=== PATIENT | female | born 1950 | race Two or more races ===

== ENCOUNTER 2024-10-21 21:05 | Inpatient (IN) | payer OTHER ==
[~2024-10-21] VITALS: Ht 157.5 cm; Wt 54.5 kg
[~2024-10-21 21:05] MED LIST: ASPI81CH59 PO; ATOR-507 PO; BRIM0.2S17 EACHEYE; BRIN1SUS EACHEYE; CEPH500C PO; CLON0.1T PO; DOCU-94 PO; LATA0.008 EACHEYE; METO25TA93 PO; OXYC325T14 PO; TIMO0.5S28 EACHEYE
--- NOTE | 2024-10-21 21:28 | ED.PDOC ---
HPI Comments 74-year-old female who comes in with chief complaint of chest pain. The patient states that she was at home and at approximately 11:00 a.m. this morning she developed some non provoked chest pain which was nonradiating. She rated it as a 7/10. She states that the chest pain was somewhat substernal and sharp in nature. It was associated with some nausea and vomiting but no diarrhea. She denies any diaphoresis and there was no trauma to the chest. She does have a history of Coronary artery disease with LAD occlusion. She was actually seen initially at [facility] in [facility] and then transferred to our facility for possible admission. There the patient had an EKG as well as aspirin nitroglycerin x2. The patient's pain went from a seven down to a to and upon arrival it was now was 0/10. She is complaining of some mild shortness for breath. She is accompanied in the emergency department's by her . The patient's seems to also have had a troponin level x1 which was within normal limits. Chief Complaint: Chest Pain Time Seen by MD: 21:20 Reviewed Notes: Nurses Notes, Toy Assembler Wood Notes, Medications, Allergies (No allergies to medications) Allergies: Coded Allergies: NO KNOWN ALLERGIES (Unverified , 10/21/24) Information Source: Patient, Emergency Med Personnel, Spouse Mode of Arrival: EMS Severity: Moderate Timing: Hours Duration: Since onset Prehospital treatment: 12 Lead EKG, ASA, Hack Saw Operator, IVF, NTG Location: Substernal Radiation: No Radiation Quality: Sharp Onset: At Rest Cardiac Risk Factors: Family History, HTN PE Risk Factors: None History of: Similar pain in past Modifying Factors: Nothing Associated Signs and Symptoms: SOB, N/V Past Medical History PAST MEDICAL HISTORY: Angina, CAD, High Lipids, HTN Surgical History: , Tonsillectomy SUPERVISOR URANIUM PROCESSING History: No Pertinent SUPERVISOR URANIUM PROCESSING History Family History Family History: Family hx of heart val Social History Smoker: Non-Smoker Alcohol: Occasionally Drugs: Denies Drug Use Lives In: Home Constitutional: denies: chills, diaphoresis, fatigue, fever, malaise, sweats, weakness, others EENTM: denies: blurred vision, double vision, ear bleeding, ear discharge, ear drainage, ear pain, ear ringing, eye pain, eye redness, hearing loss, mouth pain, mouth swelling, nasal discharge, nose bleeding, nose congestion, nose pain, photophobia, tearing, throat pain, throat swelling, voice changes, others Respiratory: reports: shortness of breath; denies: cough, hemoptysis, orthopnea, SOB at rest, SOB with excertion, stridor, wheezing, others Cardiovascular: reports: chest pain; denies: dizzy spells, diaphoresis, Dyspnea on exertion, edema, irregular heart beat, left arm pain, lightheadedness, palpitations, PND, syncope, others Gastrointestinal: reports: nausea, vomiting; denies: abdomen distended, abdominal pain, blood streaked bowels, constipated, diarrhea, dysphagia, difficulty swallowing, hematemesis, melena, poor appetite, poor fluid intake, rectal bleeding, rectal pain, others Genitourinary: denies: abnormal vagina bleeding, burning, dyspareunia, dysuria, flank pain, frequency, hematuria, incontinence, pain, , vagina discharge, urgency, others Neurological: denies: dizziness, fainting, headache, left sided numbness, left sided weakness, numbness, paresthesia, pre-existing deficit, right sided numbness, right sided weakness, seizure, speech problems, tingling, tremors, weakness, others Musculoskeletal: denies: back pain, gout, joint pain, joint swelling, muscle pain, muscle stiffness, neck pain, others Integumetry: denies: bruises, change in color, change in hair/nails, dryness, laceration, lesions, lumps, rash, wounds, others Allergic/Immunocompromised: denies: Difficulty Healing, Frequent Infections, Hives, Itching, others Hematologic/Lymphatic: denies: anemia, blood clots, easy bleeding, easy bruising, swollen glands, others Endocrine: denies: excessive hunger, excessive sweating, excessive thirst, excessive urination, flushing, intolerance to cold, intolerance to heat, unexplained weight gain, unexplained weight loss, others Psychiatric: denies: anxiety, bipolar disorder, depression, hopeless, panic disorder, schizophrenia, sleepless, suicidal, others Physical Exam General Appearance: Moderate Distress HEENT: Normal ENT Inspection, Pharynx Normal, TMs Normal Neck: Full Range of Motion, Non-Tender, Normal, Normal Inspection Respiratory: Chest Non-Tender, Lungs Clear, No Accessory Muscle Use, No Respiratory Distress, Normal Breath Sounds Cardiovascular: No Edema, No JVD, No Murmur, No Gallop, Normal Peripheral Pulses, Regular Rate/Rhythm Breast Exam: Deferred Gastrointestinal: No Organomegaly, Non Tender, No Pulsatile Mass, Normal Bowel Sounds, Soft Genitalia: Deferred Pelvic: Deferred Rectal: Deferred Extremities: No calf tenderness, Normal capillary refill, Normal inspection, Normal range of motion, Non-tender, No pedal edema Musculoskeletal : Apperance: Normal Neurologic: Alert, carpenter assistant II-XII nml as Tested, No Motor Deficits, Normal Affect, Normal Mood, No Sensory Deficits Cerebellar Function: Normal Reflexes: Normal Skin: Dry, Normal Color, Warm Lymphatic: No Adenopathy EKG EKG : Pulse Rate (adult): 100 [place]: Normal Cardiac Rhythm: NSR Block: None ST: Nonsp Was a procedure done? Was a procedure done?: No CP Differential Dx Differential Diagnosis: Angina, CO, Pulmonary Embolus Differential Diagnosis: CHF Differential Diagnosis: Pericarditis X-Ray, Labs, Meds, VS Vital Signs Date Time Temp Pulse Resp B/P (MAP) Pulse Ox O2 Delivery O2 Flow Rate FiO2 10/21/24 21:28 100 10/21/24 21:09 98.2 105 18 137/63 (87) 97 IV Hep-Lock was established. The patient will be admitted A cardiology consult will be obtained. The patient was already received aspirin and has already received nitroglycerin At this time, the patient was being admitted The patient was had a chest x-ray as well as other labs done at the other facility so the patient was up for admission Images Reviewed?: Images reviewed and evaluated by me Time of 1ST Reevaluation: 21:28 Reevaluation 1ST: Unchanged Patient Education/Counseling: Diagnosis, Treatment, Prognosis Family Education/Counseling: Diagnosis, Treatment, Prognosis Departure 1 Departure Time of Disposition: 21:54 Impression: Primary Impression: Acute myocardial ischemia Disposition: ADMITTED INPATIENT Admit to: Tele Condition: Fair Critical Care Note Critical Care Time?: Yes (45 min-critical care time only) Stability Stability form required: Yes Unstable for transfer: Telemetry monitoring (Telemetry monitoring required), ED Physician Assesment (Clinical assesment) Heart Score Heart Score: Heart Score Response (Comments) Value History Moderate Suspicious 1 EKG Repolarization Disturb 1 Age >65 2 Risk Factors >3 or Hx ASHD 2 Troponin Normal limit 0 Total 6 HARDIK HARRIS MD Oct 21, 2024 21:28
[2024-10-21 22:27] LABS: Eosinophils # (auto) 0.2 10 ^3/uL (0-0.8); Hemoglobin 11.6 g/dL (12.2-16.2); Monocytes # (auto) 0.8 10 ^3/uL (0-1.3); Monocytes % (auto) 8.9 % (0.0-12.0); Red Cell Distribution Width 18.3 % (11.8-14.3)
[2024-10-21 22:28] LABS: Basophils # (auto) 0.1 10 ^3/uL (0-0.2); Basophils % (auto) 0.6 % (0.0-2.0); Eosinophils % (auto) 1.9 % (0.0-7.0); Lymphocytes # (auto) 1.2 10 ^3/uL (0.4-5.4); Lymphocytes % (auto) 12.3 % (10.0-50.0); Mean Corpuscular Hgb Conc. 32.3 g/dL (32.0-36.0); Mean Corpuscular Volume 77.4 fL (80.0-100.0); Neutrophils # (auto) 7.2 10 ^3/uL (1.6-8.6); Neutrophils % (auto) 76.3 % (37.0-80.0); Platelet Count (auto) 384 10^3/uL (140-450); Red Blood Cells 4.65 10^6/uL (4.0-5.20); White Blood Cell 9.5 10^3/uL (4.4-10.8)
[2024-10-21 22:37] LABS: Potassium 4.2 mmol/L (3.5-5.1); Sodium 140 mmol/L (136-145)
[2024-10-21 22:38] LABS: Anion Gap 8 (5-15); Calcium 10.2 mg/dL (8.7-10.4); Carbon Dioxide 24 mmol/L (20-31)
[2024-10-21 22:39] LABS: Chloride 108 mmol/L (98-107)
[2024-10-21 22:43] LABS: BUN/Creatinine Ratio 19.2 (10.0-20.0); Blood Urea Nitrogen 15 mg/dL (9-23); Glucose 110 mg/dL (74-106)
--- NOTE | 2024-10-21 23:40 | DVHHPRES ---
History of Present Illness Resident Creating Document: DIAMOND GREGG RESIDENT History of Present Illness 24-year-old female with past medical history of coronary artery disease (50% lad occlusion noted in 2023 at [facility]), hypertension, dyslipidemia, osteoarthritis who was transferred from the [facility] after she came in with a chest pain. According to the patient, today on 10/21/2024 she started experiencing unprovoked chest pain which she describes as constant, sharp and 10/10 in intensity at onset, accompanied with 2 episodes of vomiting. Patient notes that she tried taking nitroglycerin sublingually twice and aspirin 2 tablets which did not relieve her symptoms and she subsequently called 911. She reports having similar symptoms in the past when she went to [place] and after left heart catheterization was told she has 50% blockage in 1 of the vessels. Patient also notes that lately she has been having increasing stress, anxiety and has been feeling sleepless. Currently denies any chest pain. Review of systems is negative except chest pain and vomiting. Patient is immobile at baseline for the past 9 months due to severe osteoarthritis and uses wheelchair at home. Past Medical History coronary artery disease (50% lad occlusion noted in 2023 at [facility]), hypertension, dyslipidemia, osteoarthritis Past Surgical History section x2 Family History Mother: Heart disease, Parkinson's Father: Malignancy, unsure Smoke: No ALCOHOL: rare Drugs: None Lives: with Family Review of Systems Constitutional: No: Fever, Chills, Sweats, Weakness, Malaise, Other Eyes: No: Pain, Vision change, Conjunctivae inflammation, Eyelid inflammation, Other, Redness ENT: No: Ear pain, Ear discharge, Nose pain, Nose discharge, Nose congestion, Mouth pain, Mouth swelling, Throat pain, Throat swelling, Other Respiratory: No: Cough, Dry, Shortness of breath, SOB with excertion, Wheezing, Hemoptysis, Pleuritic Pain, Sputum, Wheezing, Other Cardiovascular: Chest Pain; No: Palpitations, Orthopnea, Paroxysmal Noc. Dyspnea, Edema, Lt Headedness, Other Gastrointestinal: Nausea, Vomiting; No: Abdominal Pain, Diarrhea, Constipation, Melena, Hematochezia, Other Genitourinary: No Dysuria, No Frequency, No Incontinence, No Hematuria, No Retention, No Other Musculoskeletal: No: other, neck pain, shoulder pain, arm pain, back pain, hand pain, leg pain, foot pain Skin: No: Rash, Lesions, Jaundice, Bruising, Other Neurological: No: Weakness, Numbness, Incoordination, Change in speech, Confusion, Seizures, Other Allergies: Coded Allergies: NO KNOWN ALLERGIES (Unverified , 10/21/24) Exam Vital Signs Vital Signs Date Time Temp Pulse Resp B/P (MAP) Pulse Ox O2 Delivery O2 Flow Rate FiO2 10/21/24 23:00 97.7 95 22 126/56 (79) 94 97.7 10/21/24 22:00 Room Air* 0 21 General Appearance: Alert, Oriented X3, Cooperative, No acute distress HEENT: Atraumatic, PERRLA, EOMI, Mucous membr. moist/pink Respiratory: Clear to auscultation, Normal air movement Cardiovascular: Other (Tachycardia) Abdominal: Normal bowel sounds, Soft, No tenderness Extremities: No clubbing, Other (Trace lower extremity edema) Skin: No rashes, No significant lesion Neuro: Normal speech, Sensation intact Psych/Mental Status: Mental status NL, Mood NL Labs/Xrays Labs Test 10/21/24 23:06 10/21/24 22:09 Range/Units White Blood Count 9.5 4.4-10.8 10^3/uL Red Blood Count 4.65 4.0-5.20 10^6/uL Hemoglobin 11.6 L 12.2-16.2 g/dL Hematocrit 36.0 36.0-46.0 % Mean Corpuscular Volume 77.4 L 80.0-100.0 fL Mean Corpuscular Hemoglobin 25.0 L 28.0-32.0 pg Mean Corpuscular Hemoglobin Concent 32.3 32.0-36.0 g/dL Red Cell Distribution Width 18.3 H 11.8-14.3 % Platelet Count 384 140-450 10^3/uL Mean Platelet Volume 6.5 L 6.9-10.8 fL Neutrophils (%) (Auto) 76.3 37.0-80.0 % Lymphocytes (%) (Auto) 12.3 10.0-50.0 % Monocytes (%) (Auto) 8.9 0.0-12.0 % Eosinophils (%) (Auto) 1.9 0.0-7.0 % Basophils (%) (Auto) 0.6 0.0-2.0 % Neutrophils # (Auto) 7.2 1.6-8.6 10 ^3/uL Lymphocytes # (Auto) 1.2 0.4-5.4 10 ^3/uL Monocytes # (Auto) 0.8 0-1.3 10 ^3/uL Eosinophils # (Auto) 0.2 0-0.8 10 ^3/uL Basophils # (Auto) 0.1 0-0.2 10 ^3/uL Nucleated Red Blood Cells 0.0 % Sodium Level 140 136-145 mmol/L Potassium Level 4.2 3.5-5.1 mmol/L Chloride Level 108 H 98-107 mmol/L Carbon Dioxide Level 24 20-31 mmol/L Anion Gap 8 5-15 Blood Urea Nitrogen 15 9-23 mg/dL Creatinine 0.78 0.550-1.02 mg/dL Glomerular Filtration Rate Calc 79 >90 mL/min BUN/Creatinine Ratio 19.2 10.0-20.0 Serum Glucose 110 H 74-106 mg/dL Calcium Level 10.2 8.7-10.4 mg/dL Assessment/Plan Assessment/Plan Acute myocardial ischemia History of coronary artery disease - aspirin 325 mg once followed by aspirin 81 mg p.o. daily - atorvastatin 40 mg - metoprolol 25 mg p.o. daily - nitroglycerin sublingual as needed for chest pain - cardiology consulted - ordered echocardiogram Hypertension Dyslipidemia Osteoarthritis - atorvastatin, metoprolol - acetaminophen 650 mg Q 8 hours as needed PUD prophylaxis: protonix 40mg DVT prophylaxis: Levonox 30mg Goals of care: Full code, discussed for >16 minutes on 10/21/2024 Plan discussed with patient Plan discussed with Dr. Michael Plan discussed with: Patient, Spouse, Other (RN) My Orders Orders - DIAMOND GREGG RESIDENT Procedure Category Date Status Time Admit ADMIT 10/21/24 Transmitted 23:36 Nitroglycerin PHA 10/21/24 Logged Sublingual (Ntrostat 23:45 Notify Of Changes ROBERT 10/21/24 Transmitted From Base 23:36 Aspirin Tablet PHA 10/21/24 Logged 23:45 Aspirin Tablet PHA 10/22/24 Logged 10:00 Atorvastatin (Lipitor) PHA 10/21/24 Logged 23:45 Atorvastatin (Lipitor) PHA 10/22/24 Transmitted 22:00 Metoprolol Xl PHA 10/21/24 Transmitted Succinate (Toprol Xl) 23:45 Metoprolol Xl PHA 10/22/24 Transmitted Succinate (Toprol Xl) 10:00 Pantoprazole PHA 10/22/24 Transmitted (Protonix) 10:00 Enoxaparin Sodium PHA 10/22/24 Transmitted (Lovenox) 10:00 * Cardiology Consult CONS 10/21/24 Transmitted 23:36 Echo 2d Mode Cardiac US 10/21/24 Logged DOP 23:36 Date of Service: Oct 21, 2024 Billing Provider: JONY MICHAEL MD Common Visit Codes: [id number] INP/OBS CARE (HIGH) Secondary Visit Codes: [id number] CARE PLAN 30 MINUTES DIAMOND GREGG RESIDENT Oct 21, 2024 23:40 JONY MICHAEL MD Oct 22, 2024 18:04
[2024-10-21] MEDS ORDERED: NITROGLYCERIN 0.4 MG SL TAB SL PRN (23:45)
[2024-10-22] VITALS (8 sets, daily range): BP systolic 123–143; BP diastolic 59–84; PULSE 82–93; RESP 16–19; TEMP 97.7–98.1; O2SAT 96–99
[2024-10-22] MEDS: ASPirin 325 MG TAB PO ONE (00:02)
[2024-10-22] MEDS: ATORVASTATIN 20 MG TAB PO ONE (00:02)
[2024-10-22] MEDS: METOPROLOL SUCCINATE XL 50 MG TAB PO ONE (00:02)
[2024-10-22] MEDS ORDERED: METO25TA5 PO (05:15)
[2024-10-22] MEDS: ACETAMINOPHEN 325 MG TAB PO PRN (06:02)
--- NOTE | 2024-10-22 06:39 | ECG ---
[facility] Test Date: 2024-10-21 Test Time: 21:07:39 Pat Name: REGINO MILLER [facility] Gender[facility] F Hoisting Engineer: KHANH : 1950 Requested By: HARDIK HARRIS Order Number: [id number] Reading MD: Al Fierro Measurements Intervals [place] Rate: 100 P: 37 MT: 151 QRS: 3 QRSD: 86 T: 56 QT: 359 QTc: 463 Interpretive Statements Sinus tachycardia Left ventricular hypertrophy ST depression, consider ischemia, lateral lds Minimal ST elevation, inferior leads Electronically Signed On 10-24-2024 16:34:15 PST by Al Fierro Please click the below link to view image of tracing.
--- NOTE | 2024-10-22 08:45 | DVHINCON2 ---
Date Seen: Oct 22, 2024 Referring Physician MD Helen Reason for Consultation Chest pain History of Present Illness This is a pleasant 74-year-old female who got transferred from [facility] in [facility] to our facility for higher level of care in the setting of chest pain. The patient complains of epigastric pain which progressed to the substernal area, non-radiating, non provoked, and associated with mild shortness of breath and diaphoresis. She self administered NTG SL 0.4 mg x3 and ASA 81 mg x 2 with no relief of symptoms prompting her to call 911. EN route to the hospital she was medicated with extra ASA and NTG SL 0.4 mg x2 with successful relief of symptoms. The patient reports she had a couple of similar episodes in the past undergoing a cardiac catheterization without catheter based intervention at [facility] on March/2024. At that time, she was diagnosed with a " maker" at 50% and sent home on ASA QD and NTG SL PRN. She underwent multiple 12 lead electrocardiogram revealing a sinus rhythm with subtle lateral ST changes. Serial troponin levels are negative. At time of assessment, she denies any chest pain. Of note, she is awaiting left knee replacement originally scheduled for tomorrow. Significant medical history includes coronary artery disease including left main disease on ASA, hypertension, dyslipidemia, and osteoarthritis. Past Medical History Past medical history reviewed. No other significant than mentioned above. Past Surgical History x2 Family History: FH: heart disease G8 MOTHER Family History Family history reviewed. Mother with unspecified heart disease. Social History Denies the use of illicit drugs or tobacco use. Drinks alcohol rarely basis. Allergies: Coded Allergies: NO KNOWN ALLERGIES (Unverified , 10/21/24) Home Meds Reported Medications Metoprolol Tartrate (Metoprolol Tartrate) 25 Mg Tab, 25 MG PO, TAB 10/22/24 Atorvastatin Calcium (Lipitor) 40 Mg Tab, 1 TAB PO QPM, #90 TAB 1 Refill 10/22/24 Home Meds Home medications reviewed. Current Medications Current Medications Medications (Trade) Dose Ordered Sig/Ty Route PRN Reason Start Time Stop Time Status Last Admin Nitroglycerin (Ntrostat Sublingual) 0.4 mg Q5MINP PRN SL FOR CHEST PAIN 10/21/24 23:45 Aspirin 81 mg DAILY PO 10/22/24 10:00 Atorvastatin Calcium (Lipitor) 40 mg HS PO 10/22/24 22:00 Metoprolol Succinate (Toprol Xl) 25 mg DAILY PO 10/22/24 10:00 Pantoprazole Sodium (Protonix) 40 mg DAILY IV 10/22/24 10:00 Enoxaparin Sodium (Lovenox) 30 mg DAILY SC 10/22/24 10:00 Acetaminophen (Tylenol Tablet) 650 mg Q8HP PRN PO MODERATE PAIN (4-6 PAIN SCALE) 10/22/24 05:15 10/22/24 06:02 Review of Systems Constitutional: Diaphoresis Ears, Nose, & Throat: No symptom reported Eyes: No symptom reported Neurological: No symptoms reported Pulmonary/Respiratory: SOB Cardiovascular: Chest pain Gastrointestinal: No symptom reported Genitourinary: No symptom reported Musculoskeletal: No symptom reported Skin: No symptom reported Psychiatric: No symptom reported Endocrine: No symptom reported Hemotologic/Lymphatic: No symptom reported Vital Signs Vital Signs Date Time Temp Pulse Resp B/P (MAP) Pulse Ox O2 Delivery O2 Flow Rate FiO2 10/22/24 05:00 98.0 93 18 142/71 (94) 96 98.0 10/22/24 04:25 Room Air* 0 21 Physical Exam General Appearance: Cooperative. Well developed. Well nourished. In no acute distress Head Exam: Normal inspection Neck Exam: Normal inspection. Non-tender. Normal alignment Pulmonary/Respiratory: Chest non-tender. Clear bilateral breath sounds Cardiovascular/Chest: Regular rate and rhythm. S1, S2. Sinus rhythm with sub tle ST changes to lateral leads. No murmurs. No JVD. Peripheral Pulses: 2+ Radial (R). 2+ Radial (L). 2+ Pedal (R). 2+ Pedal (L) Abdominal Exam: Normal bowel sounds. Soft. Nontender. No hepatospenomegaly. No masses Ankle Exam: Negative ankle edema Lower extremities: Right lower extremity edema, nonpitting, knee brace on place. Neuro/Mental Status: A&O x4. Coherent Thoughts/Psych: Normal thought pattern. Appropriate mood and affect. Good judgement and insight Appearance: In no acute distress Skin Exam: Normal inspection. Normal color. Warm. Dry Labs/Diagnostic Data Labs Test 10/22/24 01:18 10/21/24 22:09 Range/Units Troponin I High Sensitivity 5 </=34 ng/L White Blood Count 9.5 4.4-10.8 10^3/uL Red Blood Count 4.65 4.0-5.20 10^6/uL Hemoglobin 11.6 L 12.2-16.2 g/dL Hematocrit 36.0 36.0-46.0 % Mean Corpuscular Volume 77.4 L 80.0-100.0 fL Mean Corpuscular Hemoglobin 25.0 L 28.0-32.0 pg Mean Corpuscular Hemoglobin Concent 32.3 32.0-36.0 g/dL Red Cell Distribution Width 18.3 H 11.8-14.3 % Platelet Count 384 140-450 10^3/uL Mean Platelet Volume 6.5 L 6.9-10.8 fL Neutrophils (%) (Auto) 76.3 37.0-80.0 % Lymphocytes (%) (Auto) 12.3 10.0-50.0 % Monocytes (%) (Auto) 8.9 0.0-12.0 % Eosinophils (%) (Auto) 1.9 0.0-7.0 % Basophils (%) (Auto) 0.6 0.0-2.0 % Neutrophils # (Auto) 7.2 1.6-8.6 10 ^3/uL Lymphocytes # (Auto) 1.2 0.4-5.4 10 ^3/uL Monocytes # (Auto) 0.8 0-1.3 10 ^3/uL Eosinophils # (Auto) 0.2 0-0.8 10 ^3/uL Basophils # (Auto) 0.1 0-0.2 10 ^3/uL Nucleated Red Blood Cells 0.0 % Sodium Level 140 136-145 mmol/L Potassium Level 4.2 3.5-5.1 mmol/L Chloride Level 108 H 98-107 mmol/L Carbon Dioxide Level 24 20-31 mmol/L Anion Gap 8 5-15 Blood Urea Nitrogen 15 9-23 mg/dL Creatinine 0.78 0.550-1.02 mg/dL Glomerular Filtration Rate Calc 79 >90 mL/min BUN/Creatinine Ratio 19.2 10.0-20.0 Serum Glucose 110 H 74-106 mg/dL Calcium Level 10.2 8.7-10.4 mg/dL Assessment Unstable angina rule out progressive coronary artery disease Coronary artery disease including left main disease at 50% Hypertension Dyslipidemia OA Plan/Recommendation (Dr. Fierro) Case discussed with Dr. Fierro. The patient with left main disease is scheduled for a cardiac catheterization and coronary angiogram on 10/23/2024. All risks and benefits of the procedure were discussed with the patient and at bedside and agree to proceed with intervention. All questions answered. We will continue further cardiac evaluation with a transthoracic echocardiogram rule out structural heart disease. In the meantime, continue single antipla telet therapy, lipid lowering agent, beta-tutu, and therapeutic Lovenox. Continue chest pain protocol. Monitor ECG changes and notify. Thank you for allowing us to participate in this patient's care. Please call if you have any questions or concerns. This medical document was created using an electronic medical record system with voice recognition software and computerized dictation system. Although this document has been carefully reviewed, there might still be some phonetic and typographical errors. Occasional wrong-word or ``sound-alike substitutions may have occurred due to the inherent limitations of voice recognition software. These areas are purely typographical due to imperfections of the software programs and do not reflect any compromise in the patient's medical care. Please read the chart carefully and recognize, using context, where these substitutions have occurred. Plan discussed with: Patient, Spouse, Other NYHA Physical activity limitations: NA Date of Service: Oct 22, 2024 Billing Provider: HALEY WALLER Cardiology Common Codes: [id number] INP/OBS CARE (High) HALEY WALLER Oct 22, 2024 08:45
[2024-10-22 09:19] LABS: Magnesium 2.3 mg/dL (1.6-2.6)
[2024-10-22] MEDS: REGADENOSON 0.4 MG/5 ML SYRG IV ONE ×2 (09:49→10:00)
[2024-10-22] MEDS ORDERED: ENOXAPARIN SOD 30 MG/0.3 ML SYRINGE SC SCH (10:00)
[2024-10-22] MEDS: PANTOPRAZOLE 40 MG/10 ML VIAL INJ IV SCH (12:17)
[2024-10-22] MEDS: ASPirin 81 mg TAB PO SCH (12:17)
[2024-10-22] MEDS: METOPROLOL SUCCINATE XL 50 MG TAB PO SCH (12:18)
[2024-10-22] MEDS: ENOXAPARIN SOD 100 MG/1 ML SYRINGE SC SCH (12:18)
--- NOTE | 2024-10-22 15:04 | DVHPN2 ---
Subjective Seen and examined at bedside. c/o Chest Pain. For [facility] tomorrow. Changes from previous H/P or p: No Changes Eyes: No Pain, No Vision change, No Conjunctivae inflammation, No Eyelid inflammation, No Other, No Redness ENT: No Ear pain, No Ear discharge, No Nose pain, No Nose discharge, No Nose congestion, No Mouth pain, No Mouth swelling, No Throat pain, No Throat swelling, No Other Cardiovascular: Chest Pain; No Palpitations, No Orthopnea, No Paroxysmal Noc. Dyspnea, No Edema, No Lt Headedness, No Other Respiratory: No Cough, No Dry, No Shortness of breath, No SOB with excertion, No Wheezing, No Hemoptysis, No Pleuritic Pain, No Sputum, No Other Gastrointestinal: No Nausea, No Vomiting, No Abdominal Pain, No Diarrhea, No Constipation, No Melena, No Hematochezia, No Other Genitourinary: No Dysuria, No Frequency, No Incontinence, No Hematuria, No Retention, No Other Musculoskeletal: No other, No neck pain, No shoulder pain, No arm pain, No back pain, No hand pain, No leg pain, No foot pain Skin: No Rash, No Lesions, No Jaundice, No Bruising, No Other Objective Vitals Vital Signs Date Time Temp Pulse Resp B/P (MAP) Pulse Ox O2 Delivery O2 Flow Rate FiO2 10/22/24 13:00 98.0 93 16 123/59 (80) 97 98.0 10/22/24 08:00 Room Air* 0 21 General Appearance: Alert, Oriented X3, Cooperative, No acute distress HEENT: Atraumatic Lungs: Clear to auscultation Cardiovascular: Regular rate, Normal S1, Normal S2 Abdomen: Normal bowel sounds, Soft, No tenderness Psych/Mental Status: Mental status NL Medications Current Medications Medications Dose Ordered Sig/Ty Route Start Time Stop Time Status Last Admin Dose Admin Nitroglycerin 0.4 mg Q5MINP PRN SL 10/21/24 23:45 Aspirin 81 mg DAILY PO 10/22/24 10:00 10/22/24 12:17 81 MG Atorvastatin Calcium 40 mg HS PO 10/22/24 22:00 Metoprolol Succinate 25 mg DAILY PO 10/22/24 10:00 10/22/24 12:18 25 MG Pantoprazole Sodium 40 mg DAILY IV 10/22/24 10:00 10/22/24 12:17 40 MG Acetaminophen 650 mg Q8HP PRN PO 10/22/24 05:15 10/22/24 06:02 650 MG Enoxaparin Sodium 50 mg Q12HR SC 10/22/24 10:00 10/22/24 12:18 50 MG Laboratory Results Laboratory Tests 10/21/24 22:09 Chemistry Test 10/21/24 22:09 10/22/24 01:18 Calcium Level 10.2 mg/dL (8.7-10.4) Magnesium Level 2.3 mg/dL (1.6-2.6) Lipid panel Test 10/22/24 01:18 Cholesterol Level 133 mg/dL (< 200) HDL Cholesterol 41 mg/dL (40-59) Triglycerides Level 167 mg/dL (< 150) H Cardiac Markers Test 10/22/24 12:00 B-Type Natriuretic Peptide 22.52 pg/mL (0-100) HgA1c, TSH Test 10/22/24 01:18 10/22/24 12:00 Thyroid Stimulating Hormone (TSH) 3.99 uIU/mL (0.55-4.78) Hemoglobin A1c 5.7 % A1C (<5.7) Assessment/Plan Assessment/Plan Unstable angina rule out progressive coronary artery disease- For [facility] tomorrow Coronary artery disease including left main disease at 50% Hypertension Dyslipidemia OA Goals of care- FULL CODE Plan discussed with: Patient My Orders Orders - JONY BARTON MD Procedure Category Date Status Time Mrsa Screen ADRY 10/22/24 In Process 06:01 Cardiolite Multiple NM 10/22/24 Taken Chest Two Views XY 10/22/24 Logged Routine 15:00 Prothrombin Time W/ LAB 10/23/24 Verified INR 04:00 Partial LAB 10/23/24 Verified Thromboplastin Time 04:00 Date of Service: Oct 22, 2024 Billing Provider: JONY BARTON MD Common Visit Codes: [id number] INP/OBS CARE(HIGH) Secondary Visit Codes: [id number] CARE PLAN 30 MINUTES JONY BARTON MD Oct 22, 2024 15:04
--- NOTE | 2024-10-22 15:41 | DVH ---
EXAM: XY CHEST TWO VIEWS ROUTINE HISTORY: sob COMPARISON: Chest x-ray and CT scan of the chest dated 08/25/2024 were not made available on the PAC system for viewing. TECHNIQUE: 2 views of the chest were performed. FINDINGS: No pneumothorax, pulmonary edema, pleural effusions, or consolidative infiltrates. The heart is not enlarged. No fractures are identified about the bony thorax. The humeral heads are high-riding consi stent with significant rotator cuff tendinopathy bilaterally. 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 IMPRESSION: No acute intrathoracic process.
[2024-10-22] MEDS: ATORVASTATIN 20 MG TAB PO SCH (21:27)
[2024-10-23] VITALS (10 sets, daily range): BP systolic 124–162; BP diastolic 47–96; PULSE 88–105; RESP 12–20; TEMP 97.6–98.7; O2SAT 94–98
[2024-10-23 08:29] LABS: Basophils # (auto) 0.1 10 ^3/uL (0-0.2); Basophils % (auto) 0.9 % (0.0-2.0); Eosinophils # (auto) 0.3 10 ^3/uL (0-0.8); Hemoglobin 12.3 g/dL (12.2-16.2); Lymphocytes # (auto) 1.3 10 ^3/uL (0.4-5.4); Monocytes # (auto) 0.8 10 ^3/uL (0-1.3); Neutrophils % (auto) 73.7 % (37.0-80.0)
[2024-10-23 08:30] LABS: Anion Gap 8 (5-15); Carbon Dioxide 26 mmol/L (20-31); Chloride 107 mmol/L (98-107); Potassium 3.9 mmol/L (3.5-5.1); Sodium 141 mmol/L (136-145)
[2024-10-23 08:31] LABS: Eosinophils % (auto) 2.9 % (0.0-7.0); Hematocrit 37.4 % (36.0-46.0); Lymphocytes % (auto) 14.1 % (10.0-50.0); Mean Corpuscular Hemoglobin 25.9 pg (28.0-32.0); Mean Corpuscular Volume 78.4 fL (80.0-100.0); Monocytes % (auto) 8.4 % (0.0-12.0); Neutrophils # (auto) 6.9 10 ^3/uL (1.6-8.6); Platelet Count (auto) 400 10^3/uL (140-450); Red Blood Cells 4.77 10^6/uL (4.0-5.20); Red Cell Distribution Width 18.4 % (11.8-14.3); White Blood Cell 9.4 10^3/uL (4.4-10.8)
[2024-10-23 08:36] LABS: BUN/Creatinine Ratio 17.5 (10.0-20.0); Blood Urea Nitrogen 14 mg/dL (9-23)
[2024-10-23 08:38] LABS: Calcium 10.8 mg/dL (8.7-10.4); Glucose 113 mg/dL (74-106)
--- NOTE | 2024-10-23 09:02 | DVHSR ---
APPROVED REPORT Exam: Nuclear Stress Test Indication: chest pain BMI: 0 Medical History Medical History: HTN, CAD - 50% OCCLUSION TO LAD Stress Test Details Stress Test: Pharmacologic stress testing performed using 0.4 mg of regadenoson per 5 mL given IV ov er 10 seconds. HR Resting HR: 88 bpmMax Heart Rate (APMHR): 145.194055 bpm Max HR Achieved: 107 bpmTarget HR (85% APMHR): 123.710327 bpm % of APMHR: 73.79 Recovery HR: 97 bpm BP Resting BP: 131/59 mmHg Recovery BP: 130/55 mmHg ECG Resting ECG: Sinus Rhythm Clinical Reason for Termination: Completed protocol Stress ECG Conclusion Review of the myocardial perfusion images demonstrated a large sized area of mild intensity reduced r adiotracer uptake in the basal and mid inferior and inferolateral ash. This appears to be mostly f ixed based on review of the resting images. Left ventricular volumes are normal. Ejection fraction is normal and is estimated at 57%. No gated images are available to assess for wall motion. Impression: Fixed defect in the inferior and inferolateral ash which could represent prior infarction versus at tenuation artifact. Normal left ventricular systolic function. NM EXAM: Myocardial Perfusion REST/STRESS Imaging Protocol: Rest Tc-99m/Stress Tc-99m 1 day Resting Data Rest SPECT myocardial perfusion imaging was performed in supine position 60 minutes following the int ravenous injection of 11.3 mCi of Tc-99m Sestamibi. Time of rest injection: 0830 Time of rest imagin Administration Route: IV Administration Site: Right AC Pharmacologic Stress Pharmacologic stress test was performed by injecting Regadenoson 0.4 mg IV push followed by the intra venous injection of 33 mCi of Tc-99m Sestamibi. Time of stress injection: 0949 Time of stress imagin Administration Route: IV Administration Site: Right AC Gated Stress SPECT was performed 60 minutes after stress injection. The images were gated to evaluate regional wall motion and calculate left ventricular ejection fracti on. Stress only was performed in the Supine position. Nuclear Conclusion ECG Findings: negative for ischemia Clinical Findings: non-diagnostic Nuclear Findings: negative for ischemia Exercise Capacity: not assessed Left Ventricular Function: normal Risk Study: moderate Review of the myocardial perfusion images demonstrated a large sized area of mild intensity reduced r adiotracer uptake in the basal and mid inferior and inferolateral ash. This appears to be mostly f ixed based on review of the resting images. Left ventricular volumes are normal. Ejection fraction is normal and is estimated at 57%. No gated images are available to assess for wall motion. Impression: Fixed defect in the inferior and inferolateral ash which could represent prior infarction versus at tenuation artifact. Normal left ventricular systolic function.
[2024-10-23 09:10] LABS: Prothrombin Time 10.6 sec (9.3-11.8)
[2024-10-23] MEDS: fentaNYL CITRATE 100 MCG/2 ML VL ONE (11:43)
[2024-10-23] MEDS ORDERED: IODIXANOL 320MG/ML 100ML BTL IV ONE (11:47)
[2024-10-23] MEDS: fentaNYL CITRATE 100 MCG/2 ML VL IV ONE (11:50)
[2024-10-23] MEDS ORDERED: fentaNYL CITRATE 100 MCG/2 ML VL ONE (15:06)
[2024-10-23] MEDS ORDERED: VERAPAMIL 2.5MG/ML INJ 2ML VIAL IV ONE (15:06)
[2024-10-23] MEDS ORDERED: ANGIOMAX 250 MG VIAL IV ONE (15:06)
[2024-10-23] MEDS ORDERED: MIDAZOLAM HCL 2MG/2ML 2ml VIAL (1mg/ml) ONE (15:07)
[2024-10-23] MEDS ORDERED: SODIUM CHL 0.9% 0 ML ONE (15:07)
[2024-10-23] MEDS ORDERED: LIDOCAINE 2%HCL (LOCAL ANESTH.) INJ 20ML MDV ONE (15:07)
[2024-10-23] MEDS ORDERED: HEPARIN SODIUM (PORCINE) 5000 UNITS/ML 1ML VIAL ONE ×2 (15:09→15:26)
[2024-10-23] MEDS ORDERED: hydrALAZINE HCL 20 MG/ML VL ONE (15:19)
--- NOTE | 2024-10-23 16:21 | DVHOP2 ---
Operative Report - 2 Report Details Date: 10/23/24 Preop Diagnosis: CAD Postop Diagnosis: Mild CAD Surgeon: Hi Fierro MD Anesthesiologist: Conscious sedation Anesthesia: Mac, Local Consent: The patient was informed of the risks and benefits of the procedure. These include but are not limited to complications of anesthesia, postoperative infection, incomplete relief of symptoms, recurrence of symptoms, damage to blood vessels, nerves and tendons, deep venous thrombosis, pulmonary embolism and possible need for repeat surgery in the future. Complications: No complications Estimated Blood Loss: 2 cc Findings: Mild CAD Indications for Surgery: Chest pain Name of Procedure Performed Bilateral cine coronary angiography left ventriculography. Procedure Details Procedure Details: Prior local anesthesia with 2% lidocaine to the right wrist and full informed consent obtained patient was prepped and draped usual fashion followed by placement of a six Turkish sheath in the radial artery and a Jose F catheter was used for cannulation of both right and left coronary ostia without complications. Aortic blood pressure was 130/70. End-diastolic pressure was heat. There was no gradient across the aortic valve on pullback. RCA is a medium caliber vessel it is normal in its proximal mid and distal segments. PDA and posterolateral branches normal. Left main is short normal. Left anterior descending is a large vessel a proximal 20-30% stenosis noted. Mid and distal segments are free of significant disease. There is a diagonal vessel that is small and has a 95% stenosis. It is large tubular lesion. The reference vessel at its distal segment is rather short and measures less than 1.5 mm in diameter. Circumflex is large with two marginals. Proximal ostial circumflex has a 30% stenosis. The mid to distal segment of the circumflex has a 20-30% stenosis mercury lesions are noted in the circumflex distribution. Ventriculography in the FREDERICK projection shows an EF 50%. Impression: Normal left ventricular end-diastolic pressure at rest. normal ejection fraction. Mild CAD. Significant stenosis diagonal not angioplasty Recommendations: Medical therapy is warranted continue with risk factor modification. Condition Good Disposition Still a Patient Date of Service: Oct 23, 2024 Billing Provider: HI FIERRO Sr., MD Cardiology Common Codes: [id number] INP/OBS CARE (High) Cardiology Procedure Codes: 45361-C/R & L HEART CATH FOR LVG HI FIERRO Sr., MD Oct 23, 2024 16:21
[2024-10-23] MEDS ORDERED: ASPI81CH59 PO (17:11)
[2024-10-23] MEDS ORDERED: ATOR-507 PO (17:11)
--- NOTE | 2024-10-23 17:13 | DVHDS2 ---
Discharge Summary Date of Admission Oct 21, 2024 at 23:36 Date of Discharge: Oct 23, 2024 Admitting Diagnosis Chest pain Labs/Diagnostic Data: Laboratory Results Test 10/23/24 07:38 10/22/24 12:00 10/22/24 01:18 White Blood Count 9.4 10^3/uL (4.4-10.8) Red Blood Count 4.77 10^6/uL (4.0-5.20) Hemoglobin 12.3 g/dL (12.2-16.2) Hematocrit 37.4 % (36.0-46.0) Mean Corpuscular Volume 78.4 fL (80.0-100.0) Mean Corpuscular Hemoglobin 25.9 pg (28.0-32.0) Mean Corpuscular Hemoglobin Concent 33.0 g/dL (32.0-36.0) Red Cell Distribution Width 18.4 % (11.8-14.3) Platelet Count 400 10^3/uL (140-450) Mean Platelet Volume 6.7 fL (6.9-10.8) Neutrophils (%) (Auto) 73.7 % (37.0-80.0) Lymphocytes (%) (Auto) 14.1 % (10.0-50.0) Monocytes (%) (Auto) 8.4 % (0.0-12.0) Eosinophils (%) (Auto) 2.9 % (0.0-7.0) Basophils (%) (Auto) 0.9 % (0.0-2.0) Neutrophils # (Auto) 6.9 10 ^3/uL (1.6-8.6) Lymphocytes # (Auto) 1.3 10 ^3/uL (0.4-5.4) Monocytes # (Auto) 0.8 10 ^3/uL (0-1.3) Eosinophils # (Auto) 0.3 10 ^3/uL (0-0.8) Basophils # (Auto) 0.1 10 ^3/uL (0-0.2) Nucleated Red Blood Cells 0.0 % Prothrombin Time 10.6 sec (9.3-11.8) Prothrombin Time INR 1.00 (0.9-1.15) Activated Partial Thromboplast Time 32.0 SEC (24.5-34.5) Sodium Level 141 mmol/L (136-145) Potassium Level 3.9 mmol/L (3.5-5.1) Chloride Level 107 mmol/L (98-107) Carbon Dioxide Level 26 mmol/L (20-31) Anion Gap 8 (5-15) Blood Urea Nitrogen 14 mg/dL (9-23) Creatinine 0.80 mg/dL (0.550-1.02) Glomerular Filtration Rate Calc 77 mL/min (>90) BUN/Creatinine Ratio 17.5 (10.0-20.0) Serum Glucose 113 mg/dL (74-106) Calcium Level 10.8 mg/dL (8.7-10.4) Hemoglobin A1c 5.7 % A1C (<5.7) B-Type Natriuretic Peptide 22.52 pg/mL (0-100) Magnesium Level 2.3 mg/dL (1.6-2.6) Troponin I High Sensitivity 5 ng/L (</=34) Triglycerides Level 167 mg/dL (< 150) Cholesterol Level 133 mg/dL (< 200) LDL Cholesterol 64 mg/dL (< 100) HDL Cholesterol 41 mg/dL (40-59) Thyroid Stimulating Hormone (TSH) 3.99 uIU/mL (0.55-4.78) Other Laboratory Tests 10/23/24 07:38 Brief Hx & Hospital Course: Patient was admitted for chest pain, underwent LHC, no intervention. Cont medical mgmnt and outpatient workup. Operations or Procedures Date: 10/23/24 Preop Diagnosis: CAD Postop Diagnosis: Mild CAD Surgeon: Hi Fierro MD Anesthesiologist: Conscious sedation Anesthesia: Mac, Local Consent: The patient was informed of the risks and benefits of the procedure. These include but are not limited to complications of anesthesia, postoperative infection, incomplete relief of symptoms, recurrence of symptoms, damage to blood vessels, nerves and tendons, deep venous thrombosis, pulmonary embolism and possible need for repeat surgery in the future. Complications: No complications Estimated Blood Loss: 2 cc Findings: Mild CAD Indications for Surgery: Chest pain Name of Procedure Performed Bilateral cine coronary angiography left ventriculography. Procedure Details Procedure Details: Prior local anesthesia with 2% lidocaine to the right wrist and full informed consent obtained patient was prepped and draped usual fashion followed by placement of a six Slovak sheath in the radial artery and a Jose F catheter was used for cannulation of both right and left coronary ostia without complications. Aortic blood pressure was 130/70. End-diastolic pressure was heat. There was no gradient across the aortic valve on pullback. RCA is a medium caliber vessel it is normal in its proximal mid and distal segments. PDA and posterolateral branches normal. Left main is short normal. Left anterior descending is a large vessel a proximal 20-30% stenosis noted. Mid and distal segments are free of significant disease. There is a diagonal vessel that is small and has a 95% stenosis. It is large tubular lesion. The reference vessel at its distal segment is rather short and measures less than 1.5 mm in diameter. Circumflex is large with two marginals. Proximal ostial circumflex has a 30% stenosis. The mid to distal segment of the circumflex has a 20-30% stenosis mercury lesions are noted in the circumflex distribution. Ventriculography in the FREDERICK projection shows an EF 50%. Impression: Normal left ventricular end-diastolic pressure at rest. normal ejection fraction. Mild CAD. Significant stenosis diagonal not angioplasty Recommendations: Medical therapy is warranted continue with risk factor modification. Condition Good Disposition 2 Still a Patient Visit Coding Cardiology Date of Service: Oct 23, 2024 Billing Provider: HI FIERRO Sr., MD Cardiology Common Codes: [id number] INP/OBS CARE (High) Cardiology Procedure Codes: 62429-O/R & L HEART CATH FOR LVG Condition at Discharge: Stable Final Diagnosis/Problems List Mild CAD Chest pain Discharge Disposition: Home Discharge Instruct/Medications Diet: Cardiac 2g Na,low cholest Activity: Light activity Follow Up/Referral: PCP in 2 weeks Medications: ASA and Lipitor Discharge Statement: "Patient was advised to return to the ER or call 911 if any headaches, dizziness, shortness of breath, chest pain, abdominal pain, bleeding, fevers, or worsening of medical condition. Patient was counseled about treatment plan, medications, possible side effects, patientverbalized understanding. All questions were answered to the best of my ability. This discharge took greater then 30 minutes in planning, reviewing documentation, counseling the patient, and discussing with other team members." ASSESSMENT ASSESSMENT Assessment Mild CAD Date of Service: Oct 23, 2024 Billing Provider: JONY BARTON MD Common Visit Codes: 49426-CDB/OBS DISCH DAY >30min JONY BARTON MD Oct 23, 2024 17:13
--- NOTE | 2024-10-23 17:14 | DVHPN2 ---
Consult Progress Note Date Seen: Oct 23, 2024 Subjective Review of Systems: CVS:Normal, RESPIRATORY:Normal, NEURO:Normal Objective vital signs Vital Sign Date Time Temp Pulse Resp B/P (MAP) Pulse Ox O2 Delivery O2 Flow Rate FiO2 10/23/24 16:44 94 20 145/53 (83) 95 10/23/24 15:43 97.8 97.8 10/23/24 08:00 Room Air* 0 21 Total Intake and Output 10/22/24 10/22/24 10/23/24 14:59 22:59 06:59 Intake Total 0 ml 0 ml Balance 0 ml 0 ml medications Current Medications Medications Dose Ordered Sig/Ty Route Start Time Stop Time Status Last Admin Dose Admin Nitroglycerin 0.4 mg Q5MINP PRN SL 10/21/24 23:45 Aspirin 81 mg DAILY PO 10/22/24 10:00 10/23/24 09:39 81 MG Atorvastatin Calcium 40 mg HS PO 10/22/24 22:00 10/22/24 21:27 40 MG Metoprolol Succinate 25 mg DAILY PO 10/22/24 10:00 10/23/24 09:39 25 MG Acetaminophen 650 mg Q8HP PRN PO 10/22/24 05:15 10/23/24 04:51 650 MG Enoxaparin Sodium 50 mg Q12HR SC 10/22/24 10:00 10/22/24 21:27 50 MG Examination: LUNGS:Normal, CVS:Normal, NEURO:Normal laboratory and microbiology Laboratory Tests 10/23/24 07:38 Test 10/23/24 07:38 Range/Units Serum Glucose 113 H 74-106 mg/dL Problem List/Assessment/Plan Problem List/Assessment/Plan Unstable angina rule out progressive coronary artery disease Coronary artery disease of mild degree, free of left main disease Hypertension Dyslipidemia OA Plan/Recommendation (Dr. Fierro) The patient with reported left main disease of 50% underwent a cardiac catheterization and coronary angiogram without catheter based intervention given mild CAD. Left main is short and normal. LAD is a large vessel with proximal stenosis noted at 20-30%. Mid and distal segments are free of significant disease. There is a diagonal vessel that is small and has a 95% stenosis. LCx has a proximal ostial 30% stenosis and 20-30% to the mid-distal segment. Ventriculography projection shows an EF of 50%. Recommendations are for continuation of single-antiplatelet therapy, lipid lowering agent, and beta- tutu. There is no further cardiac work-up indicated at this time. Kindly call if in need to re-consult. Thank you for allowing us to participate in this patient's care. This medical document was created using an electronic medical record system with voice recognition software and computerized dictation system. Although this document has been carefully reviewed, there might still be some phonetic and typographical errors. Occasional wrong-word or ``sound-alike substitutions may have occurred due to the inherent limitations of voice recognition software. These areas are purely typographical due to imperfections of the software programs and do not reflect any compromise in the patient's medical care. Please read the chart carefully and recognize, using context, where these substitutions have occurred. Plan discussed with: Patient, Other Date of Service: Oct 23, 2024 Billing Provider: HI FIERRO Sr., MD Cardiology Common Codes: [id number] [facility] Oct 23, 2024 17:14
--- NOTE | 2024-10-25 16:39 | DVHSR ---
APPROVED REPORT EXAM: Two-dimensional and M-mode echocardiogram with Doppler and color Doppler. Blood Pressure: 142/71 mmHg INDICATION chest pain, lower exremity edema RISK FACTORS Height: 5'2, Weight: 120 DIMENSIONS LVDd4.8 (3.8-5.7cm)LA (2D)3.2 (1.9-4.0cm)Aortic Root3.2 (2.0-3.7cm) LVDs3.1 (2.5-4.0cm)LA (MM) (1.9-4.0cm)Aortic Cusp Exc1.4 (1.5-2.0cm) EF (%) 60.0 (55-70%)Rt. Atrium (1.9-4.0cm)Asc. Aorta2.8 cm IVSd1.0 (0.7-1.1cm)RV (D)2.3 (1.8-2.4cm) PWd1.0 (0.7-1.1cm) Mitral Valve MitralMitral Stenosis E wave0.52m/sMV Mean GR.mmHg A wave0.89m/sMV Peak GR.mmHg E/A ratio0.62D MVAcm2 DECEL [id number] 1/2 Timems Aortic Valve Aortic ValveAortic Stenosis V11.11m/Jadon Mean GR.5mmHg V21.72m/Jadon Peak GR.12mmHg LVOT Diameter1.7 (1.8-2.4cm)Doppler AVA1.46cm2 AI P 1/2 Syap575.07ms Pulmonic Valve V21.24m/s Tricuspid Valve TR Velocity2.54m/s [id number] Conclusion Technically good study. Sinus rhythm. Normal chamber sizes. Valves are normal. EF is normal at 60% with normal RV function. Dopplers unremarkable. No pericardial effusion masses or vegetations.
== END 2024-10-23 19:50 | disposition home or self-care (01) | DRG 287 ==
LOC: EDBD 21:05 → ER 21:05 → TELE 23:36 → TELE-WESTW 10-22 02:12
PROVIDERS: ADMIT Internal Medicine; ATTEND Internal Medicine
PROC: B211YZZ Fluoroscopy of Multiple Coronary Arteries using Other Contrast (ICD-10-PCS; principal; 2024-10-23)
PROC: B215YZZ Fluoroscopy of Left Heart using Other Contrast (ICD-10-PCS; 2024-10-23)
PROC: 4A023N7 Measurement of Cardiac Sampling and Pressure, Left Heart, Percutaneous Approach (ICD-10-PCS; 2024-10-23)
DX: I25.110 Atherosclerotic heart disease of native coronary artery with unstable angina pectoris (principal); Z96.652 Presence of left artificial knee joint; E78.5 Hyperlipidemia, unspecified; I10 Essential (primary) hypertension; Z98.891 History of uterine scar from previous surgery; Z82.49 Family history of ischemic heart disease and other diseases of the circulatory system
CPT/HCPCS: 36415; 71046; 78452; 80048; 80061; 83036; 83735; 83880; 84443; 84484; 85025; 85610; 85730; 86850; 86900; 86901; 87081; 93005; 93017; 93306; 93458; 99152; 99291; G0378; J2250; J2470; Q9967